=== PATIENT | female | born 1980 | race Two or more races ===

== ENCOUNTER 2017-02-10 15:11 | Inpatient (IN) | payer SELFPAY ==
[~2017-02-10] VITALS: Ht 175.3 cm; Wt 149.0 kg
[2017-02-10 16:00] LABS: Basophils # (auto) 0 uL; Basophils % (auto) 0.1 % (0.0-2.0); CONDITION Y; DEFINITIVE SEE PRINTOUT; Eosinophils # (auto) 0.1 uL; Eosinophils % (auto) 0.6 % (0.0-7.0); Hematocrit 21.5 % (36.0-46.0); Lymphocytes # (auto) 0.7 uL; Mean Corpuscular Hgb Conc. 29.9 g/dL (32.0-36.0); Mean Corpuscular Volume 63.6 fL (80.0-100.0); Mean Platelet Volume 8.8 fL (7.4-10.4); Monocytes # (auto) 0.3 uL; Monocytes % (auto) 3.8 % (0.0-12.0); Neutrophils # (auto) 7.3 uL; Neutrophils % (auto) 87.5 % (37.0-80.0); Platelet Count (auto) 293 10^3/uL (140-450); White Blood Cell 8.3 10^3/uL (4.4-10.8)
[2017-02-10 16:02] LABS: Red Cell Distribution Width 21.3 % (11.6-16.0)
[2017-02-10 16:07] LABS: Hemoglobin 6.4 g/dL (12.2-16.2)
[2017-02-10 16:22] LABS: BUN/Creatinine Ratio 7.1; Calcium 8.2 mg/dL (8.5-10.1); Potassium 3.9 mmol/L (3.5-5.1)
[2017-02-10 16:25] LABS: Total Protein 8.1 g/dL (6.4-8.2)
[2017-02-10 16:53] LABS: Anisocytosis Moderate; Giant Platelets Few; Platelet Estimate Adequate
[2017-02-10 16:54] LABS: Hypochromia Moderate; Large Platelets FEW; Microcytosis Moderate
[2017-02-10] MEDS ORDERED: SODIUM CHLORIDE 0.9% 250 ML IV ONE (17:09)
[2017-02-10 17:47] LABS: INR 1.03 (0.9-1.15); Partial Thromboplastin Time 24.8 sec (22.64-33.71); Prothrombin Time 11.2 sec (9.37-12.3)
[2017-02-10] MEDS: SODIUM CHLORIDE 0.9% 1,000 ML IV SCH (18:24)
[2017-02-10] MEDS ORDERED: NITROGLYCERIN 0.4 MG SL TAB SL PRN (18:30)
[2017-02-10] MEDS ORDERED: ACETAMINOPHEN 500 MG TAB PO PRN (18:30)
[2017-02-10] MEDS ORDERED: LORazepam 2MG/ML-1ML VIAL IV PRN (18:30)
[2017-02-10] MEDS ORDERED: PANTOPRAZOLE 40 MG/10 ML VIAL IV ONE (18:30)
[2017-02-10] MEDS: LEVOFLOXACIN 500MG 100 ML IV SCH (18:57)
[2017-02-10] MEDS: MORPHINE SULFATE 4 MG/ML SYRG IV PRN ×2 (19:30→23:11)
[2017-02-10 20:43] LABS: Urine Bilirubin Negative (Negative); Urine Blood Negative /uL (Negative); Urine Color Yellow (Yellow); Urine Glucose Normal (Normal); Urine Ketone Negative (Negative); Urine Nitrite Negative (Negative); Urine RBC <1 /hpf (0 - 4); Urine Squamous Epithelial Cell FEW /hpf (<5)
[2017-02-10] MEDS: metroNIDAZOLE 500MG/100ML 100 ML IV SCH ×2 (22:00→23:30)
[2017-02-11] VITALS (7 sets, daily range): BP systolic 112–149; BP diastolic 67–92
[2017-02-11] MEDS: SODIUM CHLORIDE 0.9% 1,000 ML IV SCH ×3 (02:28→19:45)
[2017-02-11] MEDS: MORPHINE SULF INJ 2 MG/ML SYRINGE 1ML IV PRN (04:20)
[2017-02-11] MEDS: MORPHINE SULFATE 4 MG/ML SYRG IV PRN ×5 (04:20→23:57)
[2017-02-11] MEDS: metroNIDAZOLE 500MG/100ML 100 ML IV SCH ×2 (06:50→21:31)
[2017-02-11] MEDS: PROMETHAZINE HCL 25 MG/ML 1ML IV PRN ×2 (09:22→14:40)
[2017-02-11] MEDS ORDERED: PANTOPRAZOLE 40 MG/10 ML VIAL IV SCH (10:00)
[2017-02-11 10:10] LABS: Basophils # (auto) 0 uL; Basophils % (auto) 0.3 % (0.0-2.0); CONDITION Y; DEFINITIVE SEE PRINTOUT; Eosinophils # (auto) 0.1 uL; Eosinophils % (auto) 2.6 % (0.0-7.0); Hematocrit 24.5 % (36.0-46.0); Hemoglobin 7.7 g/dL (12.2-16.2); Lymphocytes # (auto) 1.1 uL; Lymphocytes % (auto) 18.9 % (10.0-50.0); Mean Corpuscular Hemoglobin 22.1 pg (28.0-32.0); Mean Corpuscular Hgb Conc. 31.5 g/dL (32.0-36.0); Mean Corpuscular Volume 70.2 fL (80.0-100.0); Mean Platelet Volume 8.8 fL (7.4-10.4); Monocytes # (auto) 0.5 uL; Monocytes % (auto) 8.9 % (0.0-12.0); Neutrophils # (auto) 3.9 uL; Neutrophils % (auto) 69.3 % (37.0-80.0); Platelet Count (auto) 248 10^3/uL (140-450); SUSPECT SEE PRINTOUT; White Blood Cell 5.6 10^3/uL (4.4-10.8)
[2017-02-11 10:12] LABS: Red Cell Distribution Width 27.4 % (11.6-16.0)
[2017-02-11] MEDS: LEVOFLOXACIN 500MG 100 ML IV SCH (10:13)
[2017-02-11] MEDS ORDERED: GASTROGRAFIN 120 ML SOL ONE (10:37)
[2017-02-11 10:53] LABS: Platelet Estimate Adequate
[2017-02-11 10:55] LABS: Anisocytosis Moderate; Hypochromia Moderate; Microcytosis Moderate
[2017-02-11] MEDS ORDERED: metroNIDAZOLE 500MG/100ML 100 ML IV ONE (15:30)
[2017-02-11 20:53] LABS: Hematocrit 30.6 % (36.0-46.0); Hemoglobin 9.5 g/dL (12.2-16.2)
[2017-02-11] MEDS: PANTOPRAZOLE 40 MG/10 ML VIAL IV SCH (21:31)
[2017-02-12] MEDS: SODIUM CHLORIDE 0.9% 1,000 ML IV SCH ×3 (00:55→18:31)
[2017-02-12] MEDS: HYDROcodone-ACET 5/325MG TAB PO PRN ×2 (03:24→18:52)
[2017-02-12 04:07] VITALS: BP 144/87
[2017-02-12] MEDS: MORPHINE SULFATE 4 MG/ML SYRG IV PRN ×3 (05:01→22:39)
[2017-02-12 05:46] LABS: Basophils # (auto) 0 uL; Basophils % (auto) 0.3 % (0.0-2.0); CONDITION Y; DEFINITIVE SEE PRINTOUT; Eosinophils # (auto) 0.2 uL; Eosinophils % (auto) 3.9 % (0.0-7.0); Hematocrit 26.4 % (36.0-46.0); Hemoglobin 8.3 g/dL (12.2-16.2); Lymphocytes % (auto) 19.5 % (10.0-50.0); Mean Corpuscular Hemoglobin 22.7 pg (28.0-32.0); Mean Corpuscular Hgb Conc. 31.6 g/dL (32.0-36.0); Mean Corpuscular Volume 71.7 fL (80.0-100.0); Mean Platelet Volume 8.8 fL (7.4-10.4); Monocytes # (auto) 0.4 uL; Monocytes % (auto) 7.9 % (0.0-12.0); Neutrophils # (auto) 3.4 uL; Neutrophils % (auto) 68.4 % (37.0-80.0); Platelet Count (auto) 243 10^3/uL (140-450); SUSPECT SEE PRINTOUT
[2017-02-12] MEDS: metroNIDAZOLE 500MG/100ML 100 ML IV SCH ×3 (05:52→22:26)
[2017-02-12 05:54] LABS: Calcium 7.8 mg/dL (8.5-10.1); Potassium 3.5 mmol/L (3.5-5.1)
[2017-02-12 05:57] LABS: Albumin 2.3 g/dL (3.4-5.0); BUN/Creatinine Ratio 14.5
[2017-02-12 06:00] LABS: Bilirubin, Total 1.2 mg/dL (0.2-1.0); Total Protein 6.9 g/dL (6.4-8.2)
[2017-02-12 06:03] LABS: Red Cell Distribution Width 28.1 % (11.6-16.0)
[2017-02-12 07:15] LABS: Platelet Estimate Adequate
[2017-02-12 07:16] LABS: Anisocytosis Moderate; Hypochromia Moderate; Microcytosis Moderate
[2017-02-12] MEDS: PANTOPRAZOLE 40 MG/10 ML VIAL IV SCH ×2 (09:19→22:25)
[2017-02-12] MEDS: LEVOFLOXACIN 500MG 100 ML IV SCH (09:19)
[2017-02-12] MEDS ORDERED: diphenhdrAMINE HCL 50 MG/1 ML VL ONE (09:34)
[2017-02-12] MEDS ORDERED: SODIUM CHLORIDE LOCK 10 ML ONE (09:34)
[2017-02-12] MEDS ORDERED: LIDOCAINE VISCOUS 2% 15ML UD ONE (09:34)
[2017-02-12] MEDS ORDERED: BENZOCAINE (DENTAL) 20 % SPRAY 60ML MT ONE (11:18)
[2017-02-12] MEDS: MIDAZOLAM HCL 5 MG/ML-1ML VIAL ONE ×2 (11:18→11:22)
[2017-02-12] MEDS: fentaNYL CITRATE 100 MCG/2 ML VL ONE ×2 (11:18→11:22)
[2017-02-12 12:00] VITALS: BP 123/83
[2017-02-12 16:00] VITALS: BP 131/83
[2017-02-12 17:14] VITALS: BP 143/91
[2017-02-12 22:00] VITALS: BP 104/45
[2017-02-13] MEDS: SODIUM CHLORIDE 0.9% 1,000 ML IV SCH ×3 (02:17→23:35)
[2017-02-13 05:30] VITALS: BP 105/50
[2017-02-13 06:22] LABS: Basophils # (auto) 0 uL; Basophils % (auto) 0.5 % (0.0-2.0); CONDITION Y; DEFINITIVE SEE PRINTOUT; Eosinophils # (auto) 0.3 uL; Hematocrit 27.2 % (36.0-46.0); Hemoglobin 8.5 g/dL (12.2-16.2); Lymphocytes % (auto) 19.4 % (10.0-50.0); Mean Corpuscular Hemoglobin 22.6 pg (28.0-32.0); Mean Corpuscular Hgb Conc. 31.2 g/dL (32.0-36.0); Mean Corpuscular Volume 72.4 fL (80.0-100.0); Mean Platelet Volume 8.9 fL (7.4-10.4); Monocytes # (auto) 0.3 uL; Monocytes % (auto) 6.8 % (0.0-12.0); Neutrophils # (auto) 3.3 uL; Neutrophils % (auto) 67.3 % (37.0-80.0); Platelet Count (auto) 269 10^3/uL (140-450); SUSPECT SEE PRINTOUT; White Blood Cell 4.9 10^3/uL (4.4-10.8)
[2017-02-13 06:29] LABS: Red Cell Distribution Width 28.4 % (11.6-16.0)
[2017-02-13] MEDS: metroNIDAZOLE 500MG/100ML 100 ML IV SCH (06:31)
[2017-02-13 06:48] LABS: Potassium 3.3 mmol/L (3.5-5.1)
[2017-02-13 06:51] LABS: BUN/Creatinine Ratio 11.9
[2017-02-13 07:30] VITALS: BP 111/59
[2017-02-13 07:37] LABS: Anisocytosis Moderate; Hypochromia Slight; Platelet Estimate Adequate; Polychromasia Slight
[2017-02-13] MEDS: MORPHINE SULFATE 4 MG/ML SYRG IV PRN (08:57)
[2017-02-13] MEDS: PANTOPRAZOLE 40 MG/10 ML VIAL IV SCH (09:12)
[2017-02-13] MEDS: LEVOFLOXACIN 500MG 100 ML IV SCH (09:12)
[2017-02-13] MEDS ORDERED: POTASSIUM CHL 20 Meq TABLET PO ONE (10:15)
[2017-02-13 13:00] VITALS: BP 122/75
[2017-02-13] MEDS: metroNIDAZOLE 500 MG TAB PO SCH ×2 (13:59→22:56)
[2017-02-13] MEDS: MORPHINE SULF INJ 2 MG/ML SYRINGE 1ML IV PRN ×2 (14:00→23:54)
[2017-02-13 16:17] VITALS: BP 130/87
[2017-02-13 22:00] VITALS: BP_SYST 120; BP_SYST 142; BP_DIAS 78; BP_DIAS 80
[2017-02-13] MEDS: PANTOPRAZOLE 40 MG TAB PO SCH (22:56)
[2017-02-14 05:36] LABS: Basophils # (auto) 0 uL; Basophils % (auto) 0.2 % (0.0-2.0); CONDITION Y; DEFINITIVE SEE PRINTOUT; Eosinophils # (auto) 0.2 uL; Hematocrit 28.1 % (36.0-46.0); Hemoglobin 8.8 g/dL (12.2-16.2); Lymphocytes # (auto) 1.3 uL; Lymphocytes % (auto) 27.3 % (10.0-50.0); Mean Corpuscular Hemoglobin 22.8 pg (28.0-32.0); Mean Corpuscular Hgb Conc. 31.2 g/dL (32.0-36.0); Mean Corpuscular Volume 72.9 fL (80.0-100.0); Mean Platelet Volume 8.9 fL (7.4-10.4); Monocytes # (auto) 0.4 uL; Monocytes % (auto) 8.5 % (0.0-12.0); Neutrophils # (auto) 2.8 uL; Platelet Count (auto) 290 10^3/uL (140-450); SUSPECT SEE PRINTOUT; White Blood Cell 4.7 10^3/uL (4.4-10.8)
[2017-02-14 05:40] LABS: Red Cell Distribution Width 28.7 % (11.6-16.0)
[2017-02-14 05:54] LABS: BUN/Creatinine Ratio 11.3; Calcium 8.2 mg/dL (8.5-10.1); Potassium 3.8 mmol/L (3.5-5.1)
[2017-02-14 06:00] VITALS: BP 125/62
[2017-02-14] MEDS: metroNIDAZOLE 500 MG TAB PO SCH (06:13)
[2017-02-14] MEDS: MORPHINE SULF INJ 2 MG/ML SYRINGE 1ML IV PRN ×2 (06:13→10:39)
[2017-02-14 07:07] LABS: Microcytosis Moderate
[2017-02-14 07:08] LABS: Anisocytosis Moderate; Hypochromia Moderate; Platelet Estimate Adequate
[2017-02-14 09:00] VITALS: BP 112/55
[2017-02-14] MEDS: PANTOPRAZOLE 40 MG TAB PO SCH (10:39)
[2017-02-14] MEDS: LEVOFLOXACIN 500MG 100 ML IV SCH (10:39)
[2017-02-14 12:36] VITALS: BP 112/55
[2017-02-14] MEDS: SODIUM CHLORIDE 0.9% 1,000 ML IV SCH (12:55)
[2017-02-14 13:00] VITALS: BP 127/67
[2017-02-14] MEDS: HYDROcodone-ACET 5/325MG TAB PO PRN (14:10)
== END 2017-02-14 17:39 | disposition home or self-care (01) | DRG 378 ==
LOC: ER 15:23 → TELE 15:24 → DOU IN ICU 02-11 16:45 → TELE-CENTR 02-12 17:16
PROVIDERS: ADMIT Internal Medicine; ATTEND Family Medicine
PROC: 30233N1 Transfusion of Nonautologous Red Blood Cells into Peripheral Vein, Percutaneous Approach (ICD-10-PCS; 2017-02-12)
PROC: 0DB68ZX Excision of Stomach, Via Natural or Artificial Opening Endoscopic, Diagnostic (ICD-10-PCS; principal; 2017-02-12 11:15)
DX: K25.4 Chronic or unspecified gastric ulcer with hemorrhage (principal); K56.60 Unspecified intestinal obstruction; Z68.42 Body mass index [BMI] 45.0-49.9, adult; K92.0 Hematemesis; D64.9 Anemia, unspecified; F17.210 Nicotine dependence, cigarettes, uncomplicated; K59.00 Constipation, unspecified; E66.01 Morbid (severe) obesity due to excess calories; Z90.49 Acquired absence of other specified parts of digestive tract; Z82.49 Family history of ischemic heart disease and other diseases of the circulatory system; Z83.3 Family history of diabetes mellitus
CPT/HCPCS: 36415; 43239; 51702; 71010; 74176; 74250; 80048; 80053; 81001; 81025; 82150; 82270; 83690; 83735; 84443; 84702; 85014; 85018; 85025; 85045; 85610; 85652; 85730; 86141; 86850; 86900; 86901; 86920; 87081; 87493; 94761; 96361; 96374; 96375; C9113; J1956; J2250; J3490